=== PATIENT | male | born 2000 | race Caucasian/White ===

== ENCOUNTER 2020-04-30 13:24 | Emergency (ER) | payer OTHER ==
[~2020-04-30] VITALS: Ht 172.7 cm; Wt 543.2 kg
--- NOTE | 2020-04-30 13:37 | NUR ---
BIB EMS FOR C/O SI. PT HAS HAD FAMILY ISSUES AND RECENTLY HAS GONE THROUGH A BREAK UP AND THE EX GF STATES SHE WAS GOING TO BE TAKING THE DOG TODAY. PT TOLD [facility] THAT HE WAS GOING TO HANG HMSELF AT 1500 TODAY IF HE KEPT FEELING THE WAY HE WAS FEELING. PT WAS THEN BROUGHT IN. HX ATTEMPTING TO HANG HIMSELF IN THE PAST MOST RECENTLY 3 WEEKS AGO. PT CURRENTLY ON [place]. 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
[2020-04-30 13:40] VITALS: BP 143/99
--- NOTE | 2020-04-30 14:06 | NUR ---
PT CURRENTLY REFUSING TO HAVE BLOOD DRAWN. STATES HE NEEDS A FEW MOMENTS BEFORE HE CAN GET IT DRAWN. EDUCATED ON NEED FOR BLOOD DRAWN AND IMPORTANCE. PT VERBALIZES UNDRSTANDING.STATES HE WILL DO IT SOON. MONORAIL CRANE OPERATOR AT BEDSIDE STATES SHE WILL COME BACK SHORTLY FOR ATTEMPT. PT ALSO AWARE OF NEED FOR UA SMAPLE. STATES HE CANNOT PROVIDE SAMPLE AT THIS TIME.
--- NOTE | 2020-04-30 14:07 | NUR ---
PERSONAL BELONINGS BAG (1 OF 1) PLACED IN SECURE LOCKER. SITTER AT BEDSIDE.
--- NOTE | 2020-04-30 14:26 | NUR ---
PT PROVIDED W/ SI LUNCH TRAY.
--- NOTE | 2020-04-30 15:26 | NUR ---
BEDSIDE REPORT GIVEN TO KIARA PAULINO.
--- NOTE | 2020-04-30 15:27 | NUR ---
SBAR HAND-OFF REPORT RECEIVED FROM KIARA CARIAS. ASSUMING CARE OF PATIENT.
--- NOTE | 2020-04-30 15:45 | NUR ---
PT WANTING TO BE DISCHARGED. SPOKE WITH KENNDEI WEAVER. PATIENT MAY ONLY BE DISCHARGED TO A RESPONSIBLE ADULT WHO IS WILLING AND AGREES TO ASSUME FULL RESPONSIBILITY FOR PATIENT. NOTIFIED PATIENT OF THIS. PATIENT STATES THAT HIS MOTHER IS DRIVING HERE AT THIS TIME FROM THE [facility] AND THAT SHE MAY BE WILLING TO DO THIS. EXPLAINED TO PATIENT THAT HE MAY NEED TO SPEND THE NIGHT IF THIS REQUIREMENT IS NOT MET AND THE ED MD AGREES. OTHERWISE, HE WILL SPEND THE NIGHT AND THE M[employer] [employer] COUNCIL MEMBER WILL SEE HIM TOMORROW. OFFERED PATIENT FOOD AND DRINK BUT HE REFUSES AT THIS TIME STATING THAT HE CAN'T GET HIMSELF TO EAT OR DRINK. PT ASKING FOR HIS PERSONAL BELONGINGS AND CELL PHONE. EXPLAINED TO HIM THAT THIS IS NOT POSSIBLE. HE STATES THAT SITTING IN THE ROOM WITH NOTHING TO DO IS DIFFICULT. OFFERED THE TELEVISION BUT HE REFUSES. PT REMAINS UNDER CONSTANT SUPERVISION OF NATE AND REMAINS SAFE.
--- NOTE | 2020-04-30 17:02 | NUR ---
MOTHER, LINDA, ARRIVED FROM [place]. SHE AGREES TO ASSUME FULL RESPONSIBILITY FOR THE PATIENT AND PLANS TO TAKE HIM BACK TO [place] WHERE HE CAN SEE HIS PSYCHIATRIST. DR. CHAN INFORMED AND AGREES TO PLAN OF CARE. LEGAL HOLD RELEASED AND PATIENT DISCHARGED IN THE CUSTODY AND CARE OF HIS MOTHER, LINDA.
== END 2020-04-30 17:03 | disposition home or self-care (01) ==
LOC: ED 14:42
DX: F32.9 Major depressive disorder, single episode, unspecified (principal); R45.851 Suicidal ideations; J45.909 Unspecified asthma, uncomplicated
CPT/HCPCS: 99283